=== PATIENT | female | born 1980 | race Hispanic/Latino ===

== ENCOUNTER 2017-10-11 13:39 | Emergency (ER) | payer OTHER, SELFPAY ==
[2017-10-11] MEDS ORDERED: ENOXAPARIN SODIUM 100 MG/1 ML SQ ONE (14:54)
== END 2017-10-11 16:51 | disposition home or self-care (01) ==
LOC: EDH 13:39
DX: I82.401 Acute embolism and thrombosis of unspecified deep veins of right lower extremity (principal)
CPT/HCPCS: 93971; 96372; 99284; J1650